=== PATIENT | female | born 1960 | race Caucasian/White ===

== ENCOUNTER → 2017-01-18 | Outpatient (CLI) | payer BC ==
[~2017-01-18] MED LIST: NO MEDICATIONS
--- NOTE | ~2017-01-18 | US200 ---
[facility] A Service of [facility] & [facility] RADIOLOGY TEXT RESULTS PATIENT: LARISA HIDALGO LOCATION: [facility] : 60 UNIT #: [id number] AGE: [address]: Dell Chappell MD SEX: F ORDER DR: [id number] [facility] [address] [facility]. [place], [place] [address] [id number] O MR#: [id number] Acc #: [id number] NAME: LARISA HIDALGO : 1960 SEX: F STUDY DATE/TIME: 01/18/2017 14:08 UNIT: [facility] ROOM: STUDY DESCRIPTION: US Breast Guided Bx 1st Lesion Attending Physician: Dell Chappell M.D. Referring Physician: Dell Chappell M.D. Ordering Physician: Dell Chappell M.D. Primary Care Physician: Dell Chappell M.D. MEDICAL IMAGING REPORT This report is preliminary unless electronic signature is present ADDENDUM Final pathology of the left breast mass demonstrated focal mild usual ductal hyperplasia and fibrosis, as well as rare microcalcifications. There is no evidence of malignancy. This is concordant with imaging. However, given the size of the mammographic finding and the lack of comparisons prior to this year, precautionary 6-month follow-up left diagnostic mammogram is recommended to ensure stability of the mammographic pattern. Final pathology of the sampled right breast lesion demonstrated a benign lymph node. This is concordant with imaging. Dr. Chappell's office will be notified by our breast lpn care manager office of the recommendations for precautionary follow-up left diagnostic mammography in 6 months. Dictated by... Keshawn Sen M.D. THIS IS AN ELECTRONICALLY VERIFIED REPORT Keshawn Sen M.D. at 02/02/2017 9:01 AM Agustín TD: 02/01/2017 14:01 JOB #: [id number] MEDICAL IMAGING REPORT COPY
--- NOTE | ~2017-01-18 | US201 ---
[id number] [facility] [address] [facility]. [place], [place] [address] [id number] O MR#: [id number] Acc #: [id number] NAME: LARISA HIDALGO : 1960 SEX: F STUDY DATE/TIME: 01/18/2017 14:08 UNIT: [facility] ROOM: STUDY DESCRIPTION: US Breast Guided Bx Add Lesion Attending Physician: Dell Chappell M.D. Referring Physician: Dell Chappell M.D. Ordering Physician: Dell Chappell M.D. Primary Care Physician: Dell Chappell M.D. MEDICAL IMAGING REPORT This report is preliminary unless electronic signature is present EXAM US Breast guided Bx Add Lesion INDICATIONS 56-year-old female with single indeterminate masses in each breast, localizing to the 10 o'clock right breast and the 2 o'clock left breast. Ultrasound-guided biopsy was recommended for definitive diagnosis. FINDINGS Please see US BREAST GUIDED BX ADD LESION report for combined text results. Dictated by... Keshawn Sen M.D. THIS IS AN ELECTRONICALLY VERIFIED REPORT Keshawn Sen M.D. at 01/20/2017 1:52 PM CAMILA/gaby TD: 01/18/2017 23:35 JOB #: [id number] MEDICAL IMAGING REPORT COPY
--- NOTE | ~2017-01-18 | MY14 ---
[facility] A Service of [facility] RADIOLOGY TEXT RESULTS PATIENT: LARISA HIDALGO LOCATION: [facility] : 60 UNIT #: [id number] AGE: [address]: Dell Chappell MD SEX: F ORDER DR: [id number] [facility] [address] [facility]. [place], [place] [address] [id number] O MR#: [id number] Acc #: [id number] NAME: LARISA HIDALGO : 1960 SEX: F STUDY DATE/TIME: 01/18/2017 15:19 UNIT: [facility] ROOM: STUDY DESCRIPTION: MY Post Bx Film Attending Physician: Dell Chappell M.D. Referring Physician: Dell Chappell M.D. Ordering Physician: Dell Chappell M.D. Primary Care Physician: Dell Chappell M.D. MEDICAL IMAGING REPORT This report is preliminary unless electronic signature is present EXAM Bilateral digital diagnostic mammogram, 01/18/2017 COMPARISON Ultrasound-guided biopsy of both breasts on the same date. Bilateral breast ultrasound, bilateral diagnostic mammogram dated January 12, 2017 and effective baseline screening mammogram dated 01/04/2017. INDICATION Evaluation of biopsy clip placement in each breast after ultrasound-guided sampling of single masses in each breast. FINDINGS There is adequate position of the biopsy clip in the 2 o'clock middle third of the left breast. Some of the mass of initial concern appears to have been excised with the biopsy. There is also adequate position of the biopsy clip in the 9 o'clock middle third of the right breast. There is no significant postbiopsy hematoma in either breast. IMPRESSION Adequate position of single biopsy clips in each breast post ultrasound-guided sampling of single bilateral breast masses. BIRADS: Postprocedure mammograms for marker placement. Dictated by... Keshawn Sen M.D. THIS IS AN ELECTRONICALLY VERIFIED REPORT Keshawn Sen M.D. at 01/20/2017 1:54 PM CAMILA/ced [facility] A Service of [facility] RADIOLOGY TEXT RESULTS PATIENT: LARISA HIDALGO LOCATION: [facility] #: [id number] : 60 UNIT #: [id number] AGE: [address]: Dell Chappell MD SEX: F ORDER DR: TD: 01/18/2017 23:22 JOB #: [id number] MEDICAL IMAGING REPORT COPY
== END | disposition home or self-care (01) ==
LOC: CWCC 12:52
DX: N63 Unspecified lump in breast (principal); N60.92 Unspecified benign mammary dysplasia of left breast; N60.32 Fibrosclerosis of left breast
CPT/HCPCS: 88305; G0204

== ENCOUNTER → 2017-02-11 | Outpatient (CLI) | payer BC ==
--- NOTE | ~2017-02-11 | EKG ---
PATIENT: LARISA HIDALGO UNIT #: [id number] Ventricular Rate: 58 BPM Atrial Rate: 58 BPM P-R Interval: 288 ms QRS Duration: 90 ms Q-T Interval: 442 ms QTC Calculation(Bezet): 433 ms P Midway: 37 degrees Calculated R Midway: 113 degrees Calculated T Midway: 28 degrees Diagnosis Line: Sinus bradycardia with 1st degree A-V block Diagnosis Line: RSR' or QR pattern in V1 suggests right Diagnosis Line: ventricular conduction delay Diagnosis Line: Left posterior fascicular block Diagnosis Line: Abnormal ECG Diagnosis Line: No previous ECGs available Diagnosis Line: Confirmed by ALBERT REYES MD ([id number]) on 02/12/2017 Diagnosis Line: 12:04:32 PM INTERPRETING MD: ERIC COMBS
--- NOTE | ~2017-02-11 | MY14 ---
[facility] A Service of [facility] & [facility] RADIOLOGY TEXT RESULTS PATIENT: LARISA HIDALGO LOCATION: [facility] : 60 UNIT #: [id number] AGE: [address]: Reza Sadler MD SEX: F ORDER DR: [id number] [facility] [address] [place], [place] [address] [id number] O MR#: [id number] Acc #: [id number] NAME: LARISA HIDALGO : 1960 SEX: F STUDY DATE/TIME: 02/18/2017 10:28 UNIT: [facility] ROOM: STUDY DESCRIPTION: MY Post Bx Film Attending Physician: Reza Sadler Jr., M.D. Referring Physician: Reza Sadler Jr., M.D. Ordering Physician: Reza Sadler Jr., M.D. Primary Care Physician: Dell Chappell M.D. MEDICAL IMAGING REPORT This report is preliminary unless electronic signature is present EXAM Clip placement mammogram 01/21/2017 INDICATION Status post ultrasound-guided needle localization procedure bilaterally. TECHNIQUE CC and true lateral views were obtained bilaterally following the ultrasound-guided fine needle localization procedure. COMPARISON 01/18/2017, 01/12/2017. FINDINGS The needle localization wire on the right is 5 mm or less from the previously placed biopsy clip in both projections. The wire skewers the tubular density/lymph node in the same clock position of the right breast on both projections. This is concordant with ultrasound imaging. On the left, the tip of the needle localization wire is between 2 and 2.5 cm from the previously placed biopsy clip on both projections. However, the area of interest in the upper outer hemisphere left breast on both projections spans a distance of about 6 cm and the previously placed biopsy clip was not visible with ultrasound. The wire was placed at the most extreme area of posterior acoustical shadowing on ultrasound and is included within the area of interest in the upper outer hemisphere left breast. Positioning of the wires was personally communicated by telephone by me to Dr. Sadler at the conclusion of the ultrasound-guided needle localization procedure. Films have been printed for intraoperative use and marked for intraoperative use as well as an appropriate note left in the patient's chart. Images also are available on DR PACS for intraoperative use. [facility] A Service of [facility] RADIOLOGY TEXT RESULTS PATIENT: LARISA HIDALGO LOCATION: [facility] : 60 UNIT #: [id number] AGE: [address]: Reza Sadler MD SEX: F ORDER DR: IMPRESSION 1. The localization wire on the right skewers the nodule and is less than 5 mm from the previously placed biopsy clip in both projections. 2. On the left, the tip of the needle localization was about 2-2.5 cm from the previously placed biopsy clip as described above. 3. Results discussed with Dr. Sadler by telephone prior to this dictation. BIRADS: 4 Suspicious abnormality - Biopsy should be considered Dictated by... Serge Wilkinson M.D. THIS IS AN ELECTRONICALLY VERIFIED REPORT Serge Wilkinson M.D. at 02/18/2017 5:19 PM MARCOS/bret TD: 02/18/2017 12:37 JOB #: [id number] MEDICAL IMAGING REPORT Page 1 of 1 COPY
--- NOTE | ~2017-02-11 | US202 ---
[facility] A Service of [facility] RADIOLOGY TEXT RESULTS PATIENT: LARISA HIDALGO LOCATION: [facility] : 60 UNIT #: [id number] AGE: [address]: Reza Sadler MD SEX: F ORDER DR: [id number] [id number] [facility]. [place], [place] [address] [id number] O MR#: [id number] Acc #: [id number] NAME: LARISA HIDALGO : 1960 SEX: F STUDY DATE/TIME: 02/18/2017 9:44 UNIT: [facility] ROOM: STUDY DESCRIPTION: US Breast Guided Ndl Loc 1st Attending Physician: Reza Sadler Jr., M.D. Referring Physician: Reza Sadler Jr., M.D. Ordering Physician: Reza Sadler Jr., M.D. Primary Care Physician: Dell Chappell M.D. MEDICAL IMAGING REPORT This report is preliminary unless electronic signature is present EXAM Ultrasound-guided needle localization procedure of the left and right breast, 02/18/2017 INDICATIONS Needle localization requested for excisional biopsy procedure to be performed by Dr. Sadler in the O.R. today. FINDINGS Needle localization of previously placed biopsy clips in the left and right breast was requested by Dr. Sadler this morning as an add-on case. Our department was pleased to offer this service to Dr. Sadler upon his request. The patient has previously placed biopsy clips in the upper outer quadrants of both breasts. Excisional biopsy has been requested for the areas that had been previously biopsied bilaterally. The areas of interest were adequately visualized on prior ultrasound guided biopsy procedures to proceed with ultrasound-guided needle localization bilaterally. Survey images performed here in the department confirmed the presence of a nodule in the 10 o'clock position of the right breast. Survey images also confirmed the presence of a densely shadowing area in the 2 o'clock position left breast that extended over a larger 6 cm distance on the patient's prior mammograms. The patient had been previously consented by the surgical service for the needle localization procedure and excisional biopsy. The consent form was signed on the chart prior to procedure. Nevertheless, discussion of the procedure occurred in a conversation with the patient here in the department. She gave oral and written consent to proceed. Prior to the procedure a "time-out" protocol was also performed to document patient identity and procedure details. [facility] A Service of [facility] RADIOLOGY TEXT RESULTS PATIENT: LARISA HIDALGO LOCATION: [facility] : 60 UNIT #: [id number] AGE: [address]: Reza Sadler MD SEX: F ORDER DR: Initially attention was turned to the left breast. The left breast was prepped and draped in the usual sterile fashion. Maximum sterile-barrier technique appropriate for procedure guidelines was utilized. This included the use of sterile gloves, sterile instruments and sterile barriers. Local anesthesia was achieved with about 4 mL of a buffered 1% lidocaine solution. Thereafter, using ultrasound guidance, a 5-cm Kopans needle and wire system was advanced to the margin of the densely shadowing area of 2 o'clock in the left breast. The needle was seen to skewer the area of shadowing and at this point the wire was deployed with the needle removed leaving the wire in place. It was seen to be in good position on ultrasound. At this point attention was turned to the right breast. The right breast was prepped and draped in usual sterile fashion. Maximum sterile-barrier technique appropriate for procedure guidelines was utilized. This included the use of sterile gloves, sterile instruments and sterile barriers. Local anesthesia was achieved with about 2 mL of a buffered 1% lidocaine solution. Thereafter, using ultrasound guidance, a 5-cm Kopans needle was advanced to the margin of the previously sampled nodule. Appropriate needle location was documented with ultrasound throughout and images demonstrating appropriate needle placement were saved to the PACS system. The needle was seen to secure the mass. At this point the wire was deployed and the needle removed leaving the wire in place in good position through the nodule. At this point the procedure was concluded. A post procedure mammogram demonstrates that the tip of the localization wire on the left is between 2 and 2.5 cm from the location of the previously placed biopsy clip in the left breast. The area of interest on the left, however, encompasses a wide area of approximately 6 cm mammographically and both the clip and the localization wire are included within the area of interest on the patient's mammogram. With respect to the right breast, the localization wire is less than 5 mm from the previously placed biopsy clip on both projections. Findings regarding the placement of the localization wires were personally discussed by me by telephone with Dr. Sadler upon completion of the localization procedure. Appropriate postprocedure notes were left in the patient's chart. Images were made available on the PACS system for intraoperative use and images were printed for intraoperative use as well. If a specimen becomes available for review, an addendum to this dictation will be generated at that time. Please see the final pathology report for further details. IMPRESSION 1. Successful ultrasound-guided needle localization procedure of the left breast as described above. Pathology results are pending at this time. 2. Successful ultrasound-guided needle localization procedure involving the right breast as described above. Pathology results are pending at this time. 3. If a specimen becomes available with respect to either breast, an [facility] A Service of [facility] RADIOLOGY TEXT RESULTS PATIENT: LARISA HIDALGO LOCATION: [facility] : 60 UNIT #: [id number] AGE: [address]: Reza Sadler MD SEX: F ORDER DR: addendum to this dictation will be generated at that time. Patients over the age of 40 are entered into a reminder system with target due date for the next mammogram. A result letter will also be sent to the patient. BIRADS: 4. Suspicious abnormality; biopsy should be considered. Dictated by... Serge Wilkinson M.D. THIS IS AN ELECTRONICALLY VERIFIED REPORT Serge Wilkinson M.D. at 02/19/2017 10:32 PM MARCOS/sagar TD: 02/18/2017 18:42 JOB #: [id number] MEDICAL IMAGING REPORT Page 1 of 1 COPY
== END | disposition home or self-care (01) ==
LOC: CAMB 07:37
DX: N63 Unspecified lump in breast (principal); R00.1 Bradycardia, unspecified; R94.31 Abnormal electrocardiogram [ECG] [EKG]; I44.60 Unspecified fascicular block
CPT/HCPCS: 93005

== ENCOUNTER → 2017-02-18 | Day surgery (SDC) | payer BC ==
--- NOTE | ~2017-02-18 | MY14 ---
[facility] A Service of [facility] RADIOLOGY TEXT RESULTS PATIENT: LARISA HIDALGO LOCATION: [facility] : 60 UNIT #: [id number] AGE: [address]: Reza Sadler MD SEX: F ORDER DR: [id number] [facility] [address] [place], [place] [address] [id number] O MR#: [id number] Acc #: [id number] NAME: LARISA HIDALGO : 1960 SEX: F STUDY DATE/TIME: 02/18/2017 10:28 UNIT: [facility] ROOM: STUDY DESCRIPTION: MY Post Bx Film Attending Physician: Reza Sadler Jr., M.D. Referring Physician: Reza Sadler Jr., M.D. Ordering Physician: Reza Sadler Jr., M.D. Primary Care Physician: Dell Chappell M.D. MEDICAL IMAGING REPORT This report is preliminary unless electronic signature is present REVISED REPORT EXAM Clip placement mammogram 01/21/2017 INDICATION Status post ultrasound-guided needle localization procedure bilaterally. TECHNIQUE CC and true lateral views were obtained bilaterally following the ultrasound-guided fine needle localization procedure. COMPARISON 01/18/2017, 01/12/2017. FINDINGS The needle localization wire on the right is 5 mm or less from the previously placed biopsy clip in both projections. The wire skewers the tubular density/lymph node in the same clock position of the right breast on both projections. This is concordant with ultrasound imaging. On the left, the tip of the needle localization wire is between 2 and 2.5 cm from the previously placed biopsy clip on both projections. However, the area of interest in the upper outer hemisphere left breast on both projections spans a distance of about 6 cm and the previously placed biopsy clip was not visible with ultrasound. The wire was placed at the most extreme area of posterior acoustical shadowing on ultrasound and is included within the area of interest in the upper outer hemisphere left breast. Positioning of the wires was personally communicated by telephone by me to Dr. Sadler at the conclusion of the ultrasound-guided needle localization procedure. Films have been printed for intraoperative use and marked for intraoperative use as well as an appropriate note left in the patient's chart. Images also are available on DR PACS for [facility] A Service of [facility] RADIOLOGY TEXT RESULTS PATIENT: LARISA HIDALGO [id number] 60 UNIT #: [id number] AGE: [address]: Reza Sadler MD SEX: F ORDER DR: intraoperative use. IMPRESSION 1. The localization wire on the right skewers the nodule and is less than 5 mm from the previously placed biopsy clip in both projections. 2. On the left, the tip of the needle localization was about 2-2.5 cm from the previously placed biopsy clip as described above. 3. Results discussed with Dr. Sadler by telephone prior to this dictation. BIRADS: 4 Suspicious abnormality - Biopsy should be considered. ACCESSION NUMBER REVISED Dictated by... Serge Wilkinson M.D. THIS IS AN ELECTRONICALLY VERIFIED REPORT Serge Wilkinson M.D. at 02/22/2017 10:03 PM MARCOS/bret TD: 02/18/2017 12:37 JOB #: [id number] MEDICAL IMAGING REPORT Page 1 of 1 COPY
--- NOTE | ~2017-02-18 | OR ---
Unit #: [id number] #: [id number] Patient: LARISA HIDALGO [id number] [address] [place], [place] [address] [id number] O MR#: [id number] NAME: LARISA HIDALGO ROOM: Date of Procedure: 02/18/2017 Admission Date: 02/18/2017 Surgeon: Reza Sadler Jr., M.D. : 1960 Attending Physician: Reza Sadler Jr., M.D. Referring Physician: Reza Sadler Jr., M.D. Primary Care Physician: Dell Chappell M.D. OPERATIVE REPORT INDICATION FOR PROCEDURE The patient is a 56-year-old white female, who recently had mammograms revealed lesions of both breasts of questionable etiology. Percutaneous needle biopsies were performed, which were indeterminate in a way, but showed no obvious cancer. Regarding this, she was advised to have excisional biopsies of both areas. She is brought in this time after preop needle localization has been performed for bilateral breast biopsies with excision of the areas of question. PREOPERATIVE DIAGNOSIS Questionable areas bilaterally of both breasts, rule out carcinoma. 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 There was no evidence of any cancer grossly. ANESTHESIA General with LMA. PROCEDURE PERFORMED Bilateral breast biopsies (excisional). DESCRIPTION OF PROCEDURE The patient was positioned in supine position. After being anesthetized, he was prepped and draped in routine fashion for bilateral breast biopsies. Guidewires were placed lateral on both breasts and both areas were visualized. On the left side, an incision was made medial to the guidewire of approximately 3 to 4 cm in length. This was carried down through the subcutaneous tissue down to the guidewire and the core tissue was taken down to the tip of the guidewire approximately 4 to 5 cm in diameter. After the tissue was removed, it was sent to pathology along with the guidewire within it. Hemostasis was achieved with Bovie cautery. The deeper tissue was approximated with continuous 2-0 Vicryl pursestring followed by interrupted 2-0 Vicryl subcu stitches and stainless steel skin clips. Similar procedure was performed on the right side with also core breast tissue approximately 6 cm in diameter being removed. The closure was the same. Sterile dressings were applied externally with compression dressing using an Israel wrap. Estimated blood loss less than 50 mL. The patient received less than 1000 mL crystalloid solution during the procedure. Sponges and instrument counts were correct x3. No drains used. No complications. The patient was taken to the recovery room with Unit #: [id number] #: [id number] Patient: LARISA HIDALGO stable vital signs in satisfactory condition. Dictated by... Reza Sadler Jr., M.D. JMB/mary TD: 02/19/2017 07:02 JOB #: [id number] CC: Dell Chappell M.D. OPERATIVE REPORT Page 1 of 1 X Reza Sadler MD X PROCEDURE OPERATIVE NOTE
--- NOTE | ~2017-02-18 | US202 ---
[facility] A Service of [facility] RADIOLOGY TEXT RESULTS PATIENT: LARISA HIDALGO LOCATION: [facility] : 60 UNIT #: [id number] AGE: [address]: eRza Sadler MD SEX: F ORDER DR: [id number] [id number] [facility]. [place], [place] [address] [id number] O MR#: [id number] Acc #: [id number] NAME: LARISA HIDALGO. : 1960 SEX: F STUDY DATE/TIME: 02/18/2017 9:44 UNIT: [facility] ROOM: STUDY DESCRIPTION: US Breast Guided Ndl Loc 1st Attending Physician: Reza Sadler Jr., M.D. Referring Physician: Reza Sadler Jr., M.D. Ordering Physician: Reza Sadler Jr., M.D. Primary Care Physician: Dell Chappell M.D. MEDICAL IMAGING REPORT This report is preliminary unless electronic signature is present ADDENDUM Left breast: Pathology results on the left indicate benign breast parenchyma with fibroadenomatous change, sclerosing adenosis, cystic changes, apocrine metaplasia and stromal fibrosis. No malignancy identified. Imaging findings are concordant with pathology results. Right breast: Pathology results indicate segments of benign breast parenchyma with an intramammary lymph node. Additional findings include an intraductal papilloma, fibroadenomatous change, sclerosing adenosis, apocrine metaplasia and stromal fibrosis. No malignancy identified. Pathology results are concordant with imaging. Suggest a bilateral diagnostic mammogram in 6 months on a precautionary basis to document imaging stability bilaterally as previously recommended in conjunction with the ultrasound guided biopsies performed in December 2016. JOB #: [id number] Dictated by... Serge Wilkinson M.D. THIS IS AN ELECTRONICALLY VERIFIED REPORT Serge Wilkinson M.D. at 03/08/2017 7:50 PM [facility] A Service [facility] RADIOLOGY TEXT RESULTS PATIENT: LARISA HIDALGO LOCATION: [facility] : 60 UNIT #: [id number] AGE: [address]: Reza Sadler MD SEX: F ORDER DR: MARCOS/alessandro TD: 03/08/2017 17:36 JOB #: [id number] MEDICAL IMAGING REPORT Page 1 of 1 COPY
--- NOTE | ~2017-02-18 | US203 ---
[facility] A Service of [facility] RADIOLOGY TEXT RESULTS PATIENT: LARISA HIDALGO LOCATION: [facility] : 60 UNIT #: [id number] AGE: [address]: Reza Sadler MD SEX: F ORDER DR: [id number] [facility] [address] [place], [place] [address] [id number] O MR#: [id number] Acc #: [id number] NAME: LARISA HIDALGO : 1960 SEX: F STUDY DATE/TIME: 02/18/2017 UNIT: [facility] ROOM: STUDY DESCRIPTION: US Breast Guided Ndl Loc Add Attending Physician: Reza Sadler Jr., M.D. Referring Physician: Reza Sadler Jr., M.D. Ordering Physician: Reza Sadler Jr., M.D. Primary Care Physician: Dell Chappell M.D. MEDICAL IMAGING REPORT This report is preliminary unless electronic signature is present EXAM US Breast Guided Ndl Loc Add FINDINGS Please see US Breast Guided Ndl Loc 1st [id number] for results. Dictated by... Serge Wilkinson M.D. THIS IS AN ELECTRONICALLY VERIFIED REPORT Serge Wilkinson M.D. at 02/22/2017 10:03 PM Melvin TD: 02/22/2017 13:59 JOB #: [id number] MEDICAL IMAGING REPORT Page 1 of 1 COPY
== END | disposition home or self-care (01) ==
LOC: CSUR 06:30
DX: D24.1 Benign neoplasm of right breast (principal); N60.82 Other benign mammary dysplasias of left breast; N60.21 Fibroadenosis of right breast; R92.0 Mammographic microcalcification found on diagnostic imaging of breast; F17.210 Nicotine dependence, cigarettes, uncomplicated; Z90.710 Acquired absence of both cervix and uterus; Z98.51 Tubal ligation status; Z98.890 Other specified postprocedural states
CPT/HCPCS: 88307; G0204; J0690; J2250; J2405; J3010